=== PATIENT | female | born 2000 | race Caucasian/White ===

== ENCOUNTER → 2020-06-10 17:17 | Outpatient (BNVA) | payer BC, OTHER, SELFPAY | PROVIDERS: Family Provider Family Medicine; PCP Family Medicine; Visit Provider Nurse Practitioner Family | DX: J11.1 Influenza due to unidentified influenza virus with other respiratory manifestations (principal); Z20.822 Contact with and (suspected) exposure to COVID-19; R50.9 Fever, unspecified; L03.90 Cellulitis, unspecified; R11.2 Nausea with vomiting, unspecified | CPT/HCPCS: 87400 ==